=== PATIENT | female | born 1970 | race Two or more races ===

== ENCOUNTER → 2016-07-12 | Outpatient (CLI) | payer BC ==
[2016-07-12 10:52] LABS: INR 3.9 (0.7-1.3); Prothrombin Time 46.3 sec (9.0-12.0)
== END | disposition home or self-care (01) ==
LOC: LAB 10:00
PROVIDERS: ATTEND Internal Medicine Cardiovascular Disease
DX: R79.1 Abnormal coagulation profile (principal)
CPT/HCPCS: 85610